=== PATIENT | female | born 1995 | race Hispanic/Latino ===

== ENCOUNTER 2021-10-11 08:36 | Outpatient (CLI) | payer OTHER, BC ==
[2021-10-11 22:05] LABS: SARS-CoV-2 PCR by NAA Not Detected (NotDetected)
== END 2021-10-11 08:37 | disposition home or self-care (01) ==
LOC: CSHLAB 08:36
PROVIDERS: ATTEND Obstetrics & Gynecology
DX: Z20.822 Contact with and (suspected) exposure to COVID-19 (principal)
CPT/HCPCS: U0003; U0005

== ENCOUNTER 2021-10-14 08:02 | Inpatient (IN) | payer BC, OTHER ==
[~2021-10-14 08:02] MED LIST: Bupivacaine 0.25% HCL 30 ML VIAL ONE
[2021-10-14] MEDS ORDERED: Ondansetron PF 4 MG/2 ML Vial IVP PRN (19:48)
[2021-10-14] MEDS ORDERED: Butorphanol Tartrate 1 MG/ML VIAL SLOW IVP PRN (19:48)
[2021-10-14] MEDS ORDERED: NS w/ Oxytocin 30 units 500 ML IV SCH ×2 (19:48→20:15)
[2021-10-14] MEDS ORDERED: Lidocaine 1% (PF) 30 ML VIAL SC PRN (19:48)
[2021-10-14] MEDS ORDERED: Acetaminophen 500 MG TAB PO PRN (19:48)
[2021-10-14] MEDS ORDERED: Zolpidem Tartrate 5 MG TAB PO PRN (19:48)
[2021-10-14] MEDS ORDERED: Misoprostol 200 MCG TAB PR PRN (19:48)
[2021-10-14] MEDS ORDERED: hydrALAZINE 20 MG/ML VIAL SLOW IVP PRN (19:48)
[2021-10-14] MEDS ORDERED: Diphenoxylate HCl/Atropine Tablet PO PRN ×2 (19:48)
[2021-10-14] MEDS ORDERED: Docusate 100 MG CAP PO PRN (19:48)
[2021-10-14] MEDS ORDERED: Acetaminophen/Codeine 30-300mg Tablet PO PRN ×2 (19:48)
[2021-10-14] MEDS ORDERED: Ibuprofen 800 MG TAB PO PRN (19:48)
[2021-10-14] MEDS ORDERED: Promethazine HCl 25 MG/ML VIAL IM PRN (19:48)
[2021-10-14 19:59] VITALS: BMI 36.6
[2021-10-14] MEDS ORDERED: Misoprostol 100 MCG TAB VAG SCH (20:15)
[2021-10-14] MEDS ORDERED: NS w/ Oxytocin 30 units 500 ML IVPB SCH (20:15)
[2021-10-14] MEDS: Lactated Ringer's 1,000 ML IV SCH (20:20)
[2021-10-14 21:25] LABS: Hemoglobin 12.8 g/dL (12.0-15.5); Mean Corpuscular HGB CONC 33.2 g/dL (32.0-36.0); Mean Corpuscular Hemoglobin 29.1 pg (27.0-33.0); Mean Corpuscular Volume 87.5 fl (81.6-98.3); Mean Platelet Volume 11.9 fl (7.4-10.4); RBC Distribution Width 14.6 % (11.5-14.5); White Blood Cell (WBC) Count 8.3 10x3/uL (3.5-10.5)
[2021-10-14 21:26] LABS: Platelet Count 144 10x3/uL (150-450)
[2021-10-14 21:53] LABS: HIV (1/2) Antibody/Antigen Non-Reactive (NonReactive); HIV 1/2 INDEX 0.07 S/CO (<1.00); Hep B Surf Ag Non-Reactive S/CO (NonReactive)
[2021-10-14 21:54] LABS: Syphilis Antibody Nonreactive (Nonreactive); Syphilis Antibody Index 0.11 S/CO (<1.00 Non-Reactive)
[2021-10-14 21:56] LABS: HBSAg Index 0.19 S/CO (0-0.99)
[2021-10-15] MEDS ORDERED: Fentanyl 2 mcg/Bup 0.1% Cadd 100 ML ONE ×2 (07:32→15:01)
[2021-10-15] MEDS ORDERED: Hydrocerin (Eucerin) Cream 120 gm Jar TOP PRN (08:03)
[2021-10-15] MEDS ORDERED: Acetaminophen 325 MG TAB PO PRN (08:03)
[2021-10-15] MEDS ORDERED: ePHEDrine Sulfate 50 MG/10 ML VIAL SLOW IVP PRN (08:03)
[2021-10-15] MEDS ORDERED: Promethazine HCl 25 MG/ML VIAL IM PRN (08:03)
[2021-10-15] MEDS ORDERED: Lactated Ringer's 500 ML IV PRN (08:03)
[2021-10-15] MEDS ORDERED: Ondansetron PF 4 MG/2 ML Vial IVP PRN ×2 (08:03→17:47)
[2021-10-15] MEDS ORDERED: Naloxone HCl 0.4 mg/ml Vial IVP PRN ×2 (08:03)
[2021-10-15] MEDS ORDERED: diphenhydrAMINE 50 MG/ML VIAL IVP PRN (08:03)
[2021-10-15] MEDS: Lactated Ringer's 1,000 ML IV SCH (08:05)
[2021-10-15] MEDS ORDERED: Communication Order-Pharmacy FS PRN (08:15)
[2021-10-15] MEDS ORDERED: Fentanyl 2 mcg/Bupivacaine 0.1% Cassette 100 ML EPIDURAL SCH (08:15)
[2021-10-15] MEDS ORDERED: Lidocaine 1% PF 10 ML AMP ONE (11:52)
[2021-10-15] MEDS ORDERED: EPINEPHrine 1 MG/ML AMP ONE (12:01)
[2021-10-15] MEDS ORDERED: Misoprostol 200 MCG TAB ONE (12:08)
[2021-10-15] MEDS ORDERED: Methylergonovine 0.2 MG/ML VIAL ONE (12:09)
[2021-10-15] MEDS ORDERED: Misoprostol 200 MCG TAB VAG PRN (17:47)
[2021-10-15] MEDS ORDERED: Milk Of Magnesia 30 ML UDCUP PO PRN (17:47)
[2021-10-15] MEDS ORDERED: diphenhydrAMINE 25 MG CAP PO PRN (17:47)
[2021-10-15] MEDS ORDERED: Lanolin Ointment 7 GM TUBE TOP PRN (17:47)
[2021-10-15] MEDS ORDERED: hydrALAZINE 20 MG/ML VIAL SLOW IVP PRN (17:47)
[2021-10-15] MEDS ORDERED: Bisacodyl 10 MG SUPP PR PRN (17:47)
[2021-10-15] MEDS ORDERED: Benzocaine-Menthol 82.5 ML CAN TOP PRN (17:47)
[2021-10-15] MEDS ORDERED: Preparation H Ointment 28 GM TUBE PR PRN (17:47)
[2021-10-15] MEDS ORDERED: NS w/ Oxytocin 30 units 500 ML IV SCH (18:00)
[2021-10-15] MEDS ORDERED: CEFAZOLIN 2 GM in Premix Bag 1 BAG IVPB SCH (22:30)
[2021-10-16] MEDS: Docusate Calcium (SURFAK) 240 MG CAP PO SCH ×3 (00:29→23:57)
[2021-10-16] MEDS ORDERED: HYDROcodone/Acetaminophen 5/325 mg Tablet PO PRN ×2 (00:30)
[2021-10-16] MEDS: Ibuprofen 800 MG TAB PO SCH ×5 (00:30→23:57)
[2021-10-16 04:11] LABS: Hemoglobin 9.9 g/dL (12.0-15.5); Mean Platelet Volume 11.9 fl (7.4-10.4); Platelet Count 114 10x3/uL (150-450); RBC Distribution Width 14.6 % (11.5-14.5); Red Blood Cell (RBC) Count 3.41 10x6/uL (3.90-5.03); White Blood Cell (WBC) Count 13.2 10x3/uL (3.5-10.5)
[2021-10-16] MEDS: Prenatal Vitamin 1 TAB PO SCH (09:01)
[2021-10-16] MEDS: Ferrous Sulfate 325 MG TAB PO SCH ×2 (09:01→18:06)
[2021-10-16] MEDS ORDERED: Boostrix 0.5 ML (Tdap) VIAL IM ONE (17:47)
[2021-10-16] MEDS: Lactated Ringer's 1,000 ML IV SCH (21:27)
[2021-10-17 07:49] VITALS: BP 111/75; TEMP 98
[2021-10-17] MEDS: Docusate Calcium (SURFAK) 240 MG CAP PO SCH (08:54)
[2021-10-17] MEDS: Prenatal Vitamin 1 TAB PO SCH (08:54)
[2021-10-17] MEDS: Ferrous Sulfate 325 MG TAB PO SCH ×2 (08:55→16:43)
[2021-10-17] MEDS: Ibuprofen 800 MG TAB PO SCH ×2 (08:55→16:42)
== END 2021-10-17 18:30 | disposition home or self-care (01) | DRG 807 ==
LOC: CSHLD 19:29 → CSHPED 10-15 23:48
PROVIDERS: ADMIT Obstetrics & Gynecology; ATTEND Obstetrics & Gynecology
PROC: 10E0XZZ Delivery of Products of Conception, External Approach (ICD-10-PCS; principal; 2021-10-15)
PROC: 10907ZC Drainage of Amniotic Fluid, Therapeutic from Products of Conception, Via Natural or Artificial Opening (ICD-10-PCS; 2021-10-15)
DX: O98.52 Other viral diseases complicating childbirth (principal); Z37.0 Single live birth; B00.9 Herpesviral infection, unspecified; Z3A.39 39 weeks gestation of pregnancy
CPT/HCPCS: 36415; 51702; 85027; 86780; 86850; 86900; 86901; 87340; 87389; J0171; J0690; J2001; J2590; J7120; S0020